=== PATIENT | male | born 1985 | race Caucasian/White ===

== ENCOUNTER 2020-07-04 12:12 | Emergency (ER) | payer OTHER ==
[~2020-07-04] VITALS: Ht 190.5 cm; Wt 121.7 kg
[2020-07-04] MEDS ORDERED: BUTALB/APAP/CAFEIN 50/325/40MG TABLET. PO ONE (13:45)
[2020-07-04] MEDS ORDERED: KETOROLAC 30 MG/ML VIAL. IM ONE (13:45)
[2020-07-04] MEDS ORDERED: ONDANSETRON ODT 4 MG TAB.RAPDIS PO ONE (13:45)
[2020-07-04] MEDS ORDERED: DEXAMETHASONE 4 MG TABLET PO ONE (13:45)
[2020-07-04] MEDS ORDERED: BUTA1TAB23 PO (13:49)
[2020-07-04] MEDS ORDERED: ONDA4TAB12 PO (13:49)
--- NOTE | 2020-07-04 13:49 | PHYS DOC ---
Past History Past Medical History: No Pertinent History Past Surgical History: Tonsillectomy Additional Past Surgical Histo: tubes in ears Alcohol Use: None General Adult EDM: Chief Complaint: HEAD INJURY/TRAUMA HPI: HPI: Patient is a [age] year old [sex] who presents with [] Review of Systems: Review of Systems: Constitutional: Denies fever or chills Eyes: Denies change in visual acuity HENT: Denies nasal congestion or sore throat Respiratory: Denies cough or shortness of breath Cardiovascular: Denies chest pain or edema GI: Denies abdominal pain, nausea, vomiting, bloody stools or diarrhea : Denies dysuria Musculoskeletal: Denies back pain or joint pain Integument: Denies rash Neurologic: Denies headache, focal weakness or sensory changes Endocrine: Denies polyuria or polydipsia Lymphatic: Denies swollen glands Psychiatric: Denies depression or anxiety Physical Exam: PE: Constitutional: Well developed, well nourished, no acute distress, non-toxic appearance. [] HENT: Normocephalic, atraumatic, bilateral external ears normal, oropharynx moist, no oral exudates, nose normal. [] Eyes: PERRLA, EOMI, conjunctiva normal, no discharge. [] Neck: Normal range of motion, no tenderness, supple, no stridor. [] Cardiovascular:Heart rate regular rhythm, no murmur [] Lungs & Thorax: Bilateral breath sounds clear to auscultation [] Abdomen: Bowel sounds normal, soft, no tenderness, no masses, no pulsatile masses. [] Skin: Warm, dry, no erythema, no rash. [] Back: No tenderness, no CVA tenderness. [] Extremities: No tenderness, no cyanosis, no clubbing, ROM intact, no edema. [] Neurologic: Alert and oriented X 3, normal motor function, normal sensory function, no focal deficits noted. [] Psychologic: Affect normal, judgement normal, mood normal. [] Current Patient Data: Vital Signs: Vital Signs Date Time Temp Pulse Resp B/P (MAP) Pulse Ox O2 Delivery O2 Flow Rate FiO2 07/04/20 12:28 98.0 78 16 162/112 (129) 98 Room Air EKG: EKG: [] Radiology/Procedures: Radiology/Procedures: [] Heart Score: Risk Factors: Risk Factors: DM, Current or recent (<one month) smoker, HTN, HLP, family history of CAD, obesity. Risk Scores: Score 0 - 3: 2.5% MACE over next 6 weeks - Discharge Home Score 4 - 6: 20.3% MACE over next 6 weeks - Admit for Clinical Observation Score 7 - 10: 72.7% MACE over next 6 weeks - Early Invasive Strategies Course & Med Decision Making: Course & Med Decision Making Pertinent Labs and Imaging studies reviewed. (See chart for details) [] Dragon Disclaimer: Dragon Disclaimer: This electronic medical record was generated, in whole or in part, using a voice recognition dictation system. Departure Departure: Impression: Primary Impression: Minor head injury Qualified Codes: S09.90XA - Unspecified injury of head, initial encounter Disposition: 01 DC HOME SELF CARE/HOMELESS Condition: STABLE Referrals: [facility] (PCP) MONI CLOUD MD Patient Instructions: Concussion and Brain Injury, [id number], Head Injury, Adult, [id number] Additional Instructions: Increase fluid hydration. May also take over the counter Ibuprofen for pain or discomfort. Scripts Ondansetron (ONDANSETRON ODT) 4 Mg Tab.rapdis 1 TAB PO PRN Q6-8HRS PRN for NAUSEA, #16 TAB Prov: REZA TOLENTINO DO 07/04/20 Butalb/Acetaminophen/Caffeine ([id number] 50-325-40) 1 Each Tablet 1 EACH PO Q6HRS PRN for HEADACHE, #14 TAB Prov: REZA TOLENTINO DO 07/04/20 REZA TOLENTINO DO Jul 04, 2020 13:49
[2020-07-04 13:52] VITALS: BP 127/77
== END 2020-07-04 14:21 | disposition home or self-care (01) ==
LOC: ER 12:12
DX: S09.90XA Unspecified injury of head, initial encounter (principal); W51.XXXA Accidental striking against or bumped into by another person, initial encounter; Y93.89 Activity, other specified; Y92.89 Other specified places as the place of occurrence of the external cause; Y99.8 Other external cause status
CPT/HCPCS: 96372; 99284; J1885; J8540; Q0162

== ENCOUNTER 2020-07-13 20:56 | Emergency (ER) | payer OTHER ==
[~2020-07-13] VITALS: Ht 190.5 cm; Wt 121.7 kg
[~2020-07-13 20:56] MED LIST: BUTA1TAB23 PO; ONDA4TAB12 PO
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
[2020-07-13] MEDS ORDERED: ACETAMINOPHEN 500 MG TABLET PO ONE (21:30)
[2020-07-13] MEDS ORDERED: IBUPROFEN 600 MG TABLET. PO ONE (21:30)
[2020-07-13 22:36] VITALS: BP 156/93
--- NOTE | 2020-07-13 22:57 | RAD ---
Chest, PA and Lateral: Technique: PA and lateral views of the chest were obtained. History: Fall. Comparison: None. Findings: The heart and pulmonary vasculature appear within normal limits. Mild bibasilar lung atelectasis or infiltrates.. The pleural margins are clear. Impression: Mild bibasilar lung atelectasis or infiltrates.. Electronically signed by: Dickson Ramirez MD (07/13/2020 10:55 PM) [id number]
== END 2020-07-13 22:36 | disposition home or self-care (01) ==
LOC: ER 20:56
DX: R07.81 Pleurodynia (principal); G89.11 Acute pain due to trauma; Y04.0XXA Assault by unarmed brawl or fight, initial encounter; Y93.89 Activity, other specified; Y92.148 Other place in prison as the place of occurrence of the external cause; Y99.0 Civilian activity done for income or pay
CPT/HCPCS: 71046; 99283